=== PATIENT | female | born 1995 ===

== ENCOUNTER 2018-02-07 21:54 | Emergency (ER) | payer SELFPAY ==
[2018-02-07] MEDS ORDERED: TORADOL ONE (22:11)
[2018-02-07] MEDS ORDERED: TORADOL IM ONE (22:22)
[2018-02-08] MEDS ORDERED: DELTASONE PO ONE (02:36)
[2018-02-08] MEDS ORDERED: AUGMENTIN 875 MG PO ONE (02:36)
[2018-02-08] MEDS ORDERED: NORCO 5/325 PO ONE (02:36)
--- NOTE | 2018-02-08 02:49 | Emergency Department Report ---
ED ENT HPI - General Chief complaint: Earache Stated complaint: EARACHE Time Seen by Provider: 02/08/18 02:35 Source: patient Mode of arrival: Ambulatory Limitations: No Limitations - History of Present Illness Initial comments: Patient is a 22-year-old -[place] female who presents for right ear pain for 5 days and now bilaterally are pending for the past 4 days patient has history of ear pain has been taking ibuprofen and Benadryl without improvement so she was sent to include tendinitis right ear states she is out in the weather and it started aching last week endorses noc fever of 100.2 f oral. There is no nausea vomiting no dizziness or lightheadedness no vertigo MD complaint: ear pain Onset/Timin -: week(s) Location: R ear, L ear Severity: moderate Severity scale (0 -10): 6 Quality: aching Consistency: constant Improves with: NSAID Worsens with: none Context- Ear: recent travel Associated Symptoms: fever, discharge from ear - Related Data Previous Rx's Medication Instructions Recorded Last Taken Type Amoxicillin/Potassium Clav 1 each PO BID #20 tablet 02/08/18 Unknown Rx [Augmentin 875-125 Tablet] Cipro/Dexameth 0.3/0.1% [Ciprodex 4 drops OT BID 10 Days #1 bottle 02/08/18 Unknown Rx OTIC] Dexamethasone [Decadron] 4 mg PO Q12H #6 tablet 02/08/18 Unknown Rx Ibuprofen 800 mg PO TID PRN #30 tablet 02/08/18 Unknown Rx Allergies Allergy/AdvReac Type Severity Reaction Status Date / Time No Known Allergies Allergy Unverified 02/07/18 22:22 ED Dental HPI - General Chief complaint: Earache Stated complaint: EARACHE Time Seen by Provider: 02/08/18 02:35 Source: patient Mode of arrival: Ambulatory Limitations: No Limitations - Related Data Previous Rx's Medication Instructions Recorded Last Taken Type Amoxicillin/Potassium Clav 1 each PO BID #20 tablet 02/08/18 Unknown Rx [Augmentin 875-125 Tablet] Cipro/Dexameth 0.3/0.1% [Ciprodex 4 drops OT BID 10 Days #1 bottle 02/08/18 Unknown Rx OTIC] Dexamethasone [Decadron] 4 mg PO Q12H #6 tablet 02/08/18 Unknown Rx Ibuprofen 800 mg PO TID PRN #30 tablet 02/08/18 Unknown Rx Allergies Allergy/AdvReac Type Severity Reaction Status Date / Time No Known Allergies Allergy Unverified 02/07/18 22:22 ED Review of Systems ROS: Stated complaint: EARACHE Other details as noted in HPI Constitutional: fever. denies: chills Eyes: denies: eye pain, eye discharge, vision change ENT: ear pain Respiratory: denies: cough, shortness of breath, wheezing Cardiovascular: denies: chest pain, palpitations Endocrine: no symptoms reported Gastrointestinal: denies: abdominal pain, nausea, diarrhea Genitourinary: denies: urgency, dysuria, discharge Musculoskeletal: denies: back pain, joint swelling, arthralgia Skin: denies: rash, lesions Neurological: denies: headache, weakness, paresthesias Psychiatric: denies: anxiety, depression Hematological/Lymphatic: denies: easy bleeding, easy bruising ED Past Medical Hx - Past Medical History Additional medical history: irregular heartbeat. - Surgical History Past Surgical History?: No - Social History Smoking Status: Never Smoker Substance Use Type: None - Medications Home Medications: Home Medications Medication Instructions Recorded Confirmed Last Taken Type Amoxicillin/Potassium Clav 1 each PO BID #20 tablet 02/08/18 Unknown Rx [Augmentin 875-125 Tablet] Cipro/Dexameth 0.3/0.1% [Ciprodex 4 drops OT BID 10 Days #1 bottle 02/08/18 Unknown Rx OTIC] Dexamethasone [Decadron] 4 mg PO Q12H #6 tablet 02/08/18 Unknown Rx Ibuprofen 800 mg PO TID PRN #30 tablet 02/08/18 Unknown Rx ED Physical Exam - General Limitations: No Limitations General appearance: alert, in no apparent distress - Head Head exam: Present: atraumatic, normocephalic - Eye Eye exam: Present: normal appearance, PERRL, EOMI Pupils: Present: normal accommodation - ENT ENT exam: Present: normal exam, normal orophraynx, mucous membranes moist - Expanded ENT Exam Expanded TM/Canal exam: Erythema: Right TM, Left TM, Effusion: Right TM, Left TM, Canal Tenderness: Right TM, Left TM Throat exam: Positive: tonsillar erythema. Negative: tonsillomegaly, tonsillar exudate, R peritonsillar mass, L peritonsillar mass - Neck Neck exam: Present: normal inspection, full ROM, lymphadenopathy. Absent: tenderness, meningismus, thyromegaly - Respiratory Respiratory exam: Present: normal lung sounds bilaterally. Absent: respiratory distress, wheezes, rhonchi, chest wall tenderness - Cardiovascular Cardiovascular Exam: Present: regular rate, normal rhythm, normal heart sounds. Absent: systolic murmur, diastolic murmur, rubs, gallop - GI/Abdominal GI/Abdominal exam: Present: soft, normal bowel sounds - Rectal Rectal exam: Present: deferred - Extremities Exam Extremities exam: Present: normal inspection, normal capillary refill - Back Exam Back exam: Present: normal inspection, full ROM. Absent: tenderness, CVA tenderness (R), CVA tenderness (L), muscle spasm, paraspinal tenderness, vertebral tenderness, rash noted - Neurological Exam Neurological exam: Present: alert, oriented X3, CN II-XII intact, normal gait, reflexes normal - Psychiatric Psychiatric exam: Present: normal affect, normal mood - Skin Skin exam: Present: warm, dry, intact, normal color. Absent: rash ED Course Vital Signs 02/07/18 22:13 Temperature 100.2 F H Pulse Rate 86 Respiratory 18 Rate Blood Pressure 119/70 O2 Sat by Pulse 98 Oximetry ED Medical Decision Making - Medical Decision Making AOM Bilat, OE right , plan : augment, ciprodex , ibuprofen, decadron, follow up with ENT in 2-3 days pt verbalized agreement and understanding of same. Critical care attestation.: If time is entered above; I have spent that time in minutes in the direct care of this critically ill patient, excluding procedure time. ED Disposition Clinical Impression: AOM (acute otitis media) Qualifiers: Otitis media type: serous Laterality: bilateral Recurrence: not specified as recurrent Qualified Code(s): H65.03 - Acute serous otitis media, bilateral Otitis externa Qualifiers: Otitis externa type: unspecified type Chronicity: acute Laterality: right Qualified Code(s): H60.501 - Unspecified acute noninfective otitis externa, right ear Disposition: TO HOME OR SELFCARE Is pt being admited?: No Does the pt Need Aspirin: No Condition: Good Instructions: Otitis Media (ED), Otitis Externa (ED) Prescriptions: Amoxicillin/Potassium Clav [Augmentin 875-125 Tablet] 1 each PO BID #20 tablet Cipro/Dexameth 0.3/0.1% [Ciprodex OTIC] 4 drops OT BID 10 Days #1 bottle Dexamethasone [Decadron] 4 mg PO Q12H #6 tablet Ibuprofen 800 mg PO TID PRN #30 tablet PRN Reason: pain fever Referrals: PRIMARY CARE,MD [Primary Care Provider] - 3-5 Days Forms: Work/School Release Form(ED) Time of Disposition: 02:56
[2018-02-08 03:05] VITALS: BP 126/72
== END 2018-02-08 03:04 | disposition home or self-care (01) ==
LOC: ED 21:54
DX: H65.03 Acute serous otitis media, bilateral (principal); H60.501 Unspecified acute noninfective otitis externa, right ear
CPT/HCPCS: 96372; 99282; J1885; J7512